=== PATIENT | male | born 1940 | race Caucasian/White ===

== ENCOUNTER → 2018-11-09 07:25 | Outpatient (CLI) | payer BC, SELFPAY ==
--- NOTE | 2018-11-09 | DI.MRI.S_ITS ---
PROCEDURE: MR LUMBAR SPINE WO CON INDICATIONS: Low back pain TECHNIQUE: Noncontrast sagittal T1 spin echo and T2 fast echo, sagittal STIR, axial T1 and T2 fast spin echo through the lumbar spine. In cases with scoliosis, additional coronal T2 fast spin echo may be performed. COMPARISON: None. FINDINGS: Image quality: Diagnostic, with note made of motion artifact. Alignment and Curvature: There is minimal retrolisthesis L1-L2, with grade 1 anterolisthesis at L2-L3. Minimal anterolisthesis is seen at L3-L4. Mild grade 1 retrolisthesis is seen L4-L5 and there is normal retrolisthesis at L5-S1. No pars defects can be seen. S-shaped scoliosis is seen, with a dominant dextroconvex thoracolumbar component. Bone Marrow: Marrow is of normal overall signal. No acute vertebral body compression fractures. Spinal Cord: Conus medullaris terminates at the L1 level. Visualized cord demonstrates normal signal and size. Paraspinous Soft Tissues: No paravertebral masses. T12-L1: Normal appearance. L1-L2: Moderate loss of disc height is seen. Loss of disc signal is seen. Moderate disc bulge is seen, which is eccentric to the left. Moderate facet joint hypertrophy is seen. There is moderate to severe bilateral neural foraminal narrowing seen, left worse than right. Moderate to severe central canal narrowing is seen, as on series 6 image 11. L2-L3: Moderate loss of disc height is seen. Loss of disc signal is seen. Moderate disc bulge is seen, which is eccentric to the left. Reactive marrow endplate changes are seen which are hypointense on T1-weighted imaging and hyperintense on T2 weighted imaging, which is most consistent with edema (Modic type I changes). Moderate to prominent facet hypertrophy is seen. There has been apparent prior removal of portions of posterior elements. There is moderate to severe left-sided neural foraminal narrowing seen, with associated nerve root compression. Moderate right-sided neural foraminal narrowing is seen. At least moderate central canal narrowing is seen at this level. L3-L4: Mild to moderate loss of disc height and disc signal are seen. There is a focal annular fissure seen posteriorly. Moderate generalized disc bulge is seen. [id number] bilateral neural foraminal narrowing is seen. Moderate central canal narrowing is seen. There has been removal of portions of the posterior elements. L4-L5: Moderate to severe loss of disc height and disc signal are seen, which are more prominent on the right side than on the left. Endplate irregularity and endplate osteophyte formation can be seen. Posteriorly projected endplate osteophytes are seen. There has been removal of portions of the posterior elements. Moderate to prominent facet hypertrophy is seen. Moderate to severe bilateral neural foraminal narrowing is seen, right worse than left. There is a degree of compression seen upon the exiting nerve roots. Moderate to severe central canal narrowing is seen. L5-S1: Mild to moderate loss of disc height and disc signal are seen. Moderate disc bulge is seen, which is eccentric to the left. At least moderate facet hypertrophy is seen. Moderate to severe bilateral neural foraminal narrowing is seen. There is a degree of compression seen upon the exiting nerve roots. Mild central canal narrowing is seen. IMPRESSION: Multiple levels of lumbar spine degenerative change are seen, which are overall most prominent at the L1-L2 level, where there is moderate to severe bilateral neural foraminal narrowing and moderate to severe central canal narrowing. Dictated by: Nikolay Smart M.D. on 11/11/2018 at 8:11 Approved by: Nikolay Smart M.D. on 11/11/2018 at 8:24
== END ==
PROVIDERS: Visit Provider Family Medicine
DX: M54.5 Low back pain (principal); M47.816 Spondylosis without myelopathy or radiculopathy, lumbar region; M48.061 Spinal stenosis, lumbar region without neurogenic claudication; G89.29 Other chronic pain
CPT/HCPCS: 72148